=== PATIENT | male | born 1985 | race Caucasian/White ===

== ENCOUNTER → 2020-08-20 | Day surgery (SDC) | payer OTHER ==
[~2020-08-20] VITALS: Ht 172.7 cm; Wt 65.8 kg
[2020-08-20 09:58] LABS: BASOPHIL 0.2 % (0-2); EOSINOPHIL 2.1 % (0-5); HCT 46.4 % (42.0-52.0); HGB 16.4 g/dl (13.2-18.0); LYMPHOCYTE 18.1 % (15-48); MCH 34.3 pg (25.0-31.0); MCHC 35.3 g/dL (32.0-36.0); MCV 97.1 fL (78.0-100.0); MONOCYTE 4.6 % (0-12); MPV 11.3 fL (6.0-9.5); NEUTROPHIL 74.6 % (41-80); NRBC 0; PLT 185 K/uL (150-400); RBC 4.78 M/uL (4.70-6.00); RDW 12.5 % (11.5-14.0); WBC 12.1 K/uL (4.0-10.5)
== END | disposition home or self-care (01) ==
LOC: FAS 09:13
PROVIDERS: Oral & Maxillofacial Surgery
DX: K01.1 Impacted teeth (principal); K04.7 Periapical abscess without sinus; F41.9 Anxiety disorder, unspecified; F17.200 Nicotine dependence, unspecified, uncomplicated; Z88.8 Allergy status to other drugs, medicaments and biological substances; R00.1 Bradycardia, unspecified
CPT/HCPCS: D7220; D7240; 36415; 71045; 85025; 93005; J1100; J1170; J2250; J2405; J2704; J2710; J3010; J7120